=== PATIENT | female | born 1940 | race Caucasian/White ===

== ENCOUNTER → 2018-01-11 | Outpatient (CLI) | payer MEDICARE ==
[~2018-01-11] MED LIST: AMLODIPINE BESYL5 MG PO; BIOTIN PO; CALTRATE 600 W1 EACH PO; CETIRIZINE HCL5 MG PO; LOSARTAN POTAS100 MG PO; OMEPRAZOLE40 MG PO; STOOL SOFTENER PO; TOPROL XL50 MG PO
--- NOTE | 2018-01-11 09:54 | Diagnostic Imaging Report ---
PROCEDURE:HIP RIGHT 2-3 VW (+/- PELVIS) COMPARISON:None. INDICATIONS:PAIN IN LOWER BACK AND RIGHT HIP FINDINGS: Normal mineralization. No acute fracture or dislocation. Joint spaces are within normal limits. Soft tissues are unremarkable. CONCLUSION: No acute radiographic abnormality. Dictated by: Devon Sanchez M.D. on 01/11/2018 at 9:54 Electronically approved by: Devon Sanchez M.D. on 01/11/2018 at 9:54
--- NOTE | 2018-01-11 09:59 | Diagnostic Imaging Report ---
PROCEDURE:L-SPINE COMPLETE COMPARISON:None. INDICATIONS:PAIN IN LOWER BACK AND RIGHT HIP FINDINGS: There are 5 lumbar-type vertebral bodies. The vertebral bodies are well-aligned without evidence of spondylolisthesis. There are no fractures, lytic or blastic lesions. The disc-space heights are well-maintained. Degenerative changes evidenced by anterior osteophytosis at multiple levels and bilateral facet hypertrophy at L4/L5 and L5/S1. The sacroiliac joints are unremarkable. CONCLUSION: No acute radiographic abnormality. Dictated by: Devon Sanchez M.D. on 01/11/2018 at 9:59 Electronically approved by: Devon Sanchez M.D. on 01/11/2018 at 9:59
== END ==
LOC: RAD 08:59
DX: M25.551 Pain in right hip (principal); M54.5 Low back pain
CPT/HCPCS: 72110

== ENCOUNTER → 2018-04-16 | Outpatient (CLI) | payer MEDICARE ==
--- NOTE | 2018-04-16 20:52 | Diagnostic Imaging Report ---
PROCEDURE: CT CHEST WITHOUT CONTRAST CT scan of the chest WITHOUT intravenous contrast, using low dose, nodule protocol. TECHNIQUE: The chest was scanned utilizing a multidetector helical scanner from the apex to the level of the adrenal glands. No IV contrast was administered per protocol. Coronal and sagittal multiplanar reformations were obtained. COMPARISON: Patients [facility], CT, CT CHEST WO, 09/12/2016, 11:55. INDICATIONS: Pulmonary nodules FINDINGS: Lines/tubes: None. Lungs and Airways: Stable pulmonary nodules as follows: * 0.4-0.5 cm subpleural nodule in the right middle lobe (series 3, image 70). * 0.4 cm nodule in the superior segment of the left lower lobe (series 3, image 19, and sagittal image 85). No new pulmonary nodules. No masses or consolidation. Stable linear scarring in the lower lobes bilaterally (for example series 3, image 86), and lingula (series 3, image 79). Stable confluent pleuroparenchymal scarring with punctate calcification in the right apex (series 3, image 14). Airways are clear, without endobronchial lesions. Pleura: No effusion, or pneumothorax. 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 Heart and mediastinum: Thyroid is unremarkable. Heart size is normal. No pericardial effusion. Aorta is non-aneurysmal. Main pulmonary artery is normal in caliber. Lymph nodes: No mediastinal, hilar, or axillary adenopathy. Abdomen: Limited views of the upper abdomen show no abnormality within the visualized liver, spleen, pancreas, or kidneys. The adrenal glands are unremarkable. Bones: No acute bony abnormalities or aggressive lytic lesions. Degenerative disc changes in the thoracic spine. Bilateral breast implants are again noted. IMPRESSION: 1. Stable pulmonary nodules since 2016, which are presumed benign. No further followup is indicated. 2. 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 Macho Quiles M.D. Dictated by: Macho Quiles M.D. on 04/16/2018 at 14:54 Electronically approved by: Macho Quiles M.D. on 04/16/2018 at 14:54
== END ==
LOC: CT 04-04 12:18
PROVIDERS: ATTEND Internal Medicine Pulmonary Disease
DX: R91.8 Other nonspecific abnormal finding of lung field (principal)
CPT/HCPCS: 71250

== ENCOUNTER 2019-02-03 11:57 | Emergency (ER) | payer MEDICARE, OTHER ==
[~2019-02-03] VITALS: Ht 172.7 cm; Wt 60.8 kg
--- OUTSIDE RECORDS SUMMARY | 2019-02-03 12:00 | XMS REPORT ---
Author Author [facility] Address Unknown Phone Unavailable Care Team Providers Care Maintenance Welder Name Role Phone ELLIE LESLIE Unavailable Unavailable CLAYDINA Unavailable Unavailable Problems This patient has no known problems. Allergies, Adverse Reactions, Alerts This patient has no known allergies or adverse reactions. Medications This patient has no known medications. Results Test Description Test Time Test Comments Text Results Atomic Results Result Comments CT CHEST WO 2018-04-16 14:54:00 [place] [address] Patient Name: ROMMEL RAE MR #: [id number] : 1940 Age/Sex: 77/F Req #: [id number] Adm Physician: Ordered by: ELLIE LESLIE MD Report #: [id number] Location: CT Room/Bed: Procedure: [id number] CT/CT CHEST WO Exam Date: 04/16/18 Exam Time: 1300 REPORT STATUS: Signed PROCEDURE: CT CHEST WITHOUT CONTRAST CT scan of the chest WITHOUT intravenous contrast, using low dose, nodule protocol. TECHNIQUE: The chest was scanned utilizing a multidetector helical scanner from the apex to the level of the adrenal glands. No IV contrast was administered per protocol. Coronal and sagittal multiplanar reformations were obtained. COMPARISON: [facility], CT, CT CHEST WO, 09/12/2016, 11:55. INDICATIONS: Pulmonary nodules FINDINGS: Lines/tubes: None. Lungs and Airways: Stable pulmonary nodules as follows: * 0.4-0.5 cm subpleural nodule in the right middle lobe (series 3, image 70). * 0.4 cm nodule in the superior segment of the left lower lobe (series 3, image 19, and sagittal image 85). No new pulmonary nodules. No masses or consolidation. Stable linear scarring in the lower lobes bilaterally (for example series 3, image 86), and lingula (series 3, image 79). Stable confluent pleuroparenchymal scarring with punctate calcification in the right apex (series 3, image 14). Airways are clear, without endobronchial lesions. Pleura: No effusion, or pneumothorax. 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 Heart and mediastinum: Thyroid is unremarkable. Heart size is normal. No pericardial effusion. Aorta is non-aneurysmal. Main pulmonary artery is normal in caliber. Lymph nodes: No mediastinal, hilar, or axillary adenopathy. Abdomen: Limited views of the upper abdomen show no abnormality within the visualized liver, spleen, pancreas, or kidneys. The adrenal glands are unremarkable. Bones: No acute bony abnormalities or aggressive lytic lesions. Degenerative disc changes in the thoracic spine. Bilateral breast implants are again noted. IMPRESSION: 1. Stable pulmonary nodules since 2016, which are presumed benign. No further followup is indicated. 2. 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 Shobha Quiles M.D. Dictated by: Shobha Quiles M.D. on 04/16/2018 at 14:54 Electronically appr nader by: Shobha Quiles M.D. on 04/16/2018 at 14:54 Dictated By: SHOBHA QUILES MD [id number] Transcribed By: SHERRI on 04/16/18 [id number] COPY TO: ELLIE LESLIE MD HIP RIGHT 2-3 VW (+/- PELVIS) [place] [address] Patient Name: ROMMEL RAE MR #: [id number] : 1940 Age/Sex: 77/F Req #: [id number] Adm Physician: Ordered by: DINA CLAY MD Report #: [id number] Location: RAD Room/Bed: Procedure: [id number] DX/HIP RIGHT 2-3 VW (+/- PELVIS) Exam Date: Exam Time: REPORT STATUS: Signed PROCEDURE: HIP RIGHT 2-3 VW (+/- PELVIS) COMPARISON: None. INDICATIONS: PAIN IN LOWER BACK AND RIGHT HIP FINDINGS: Normal mineralization. No acute fracture or dislocation. Joint spaces are within normal limits. Soft tissues are unremarkable. CONCLUSION: No acute radiographic abnormality. Dictated by: Christoph Keating M.D. on 01/11/2018 at 9:54 Electronically approved by: Christoph Keating M.D. on 01/11/2018 at 9:54 Dictated By: CHRISTOPH KEATING MD 3 Transcribed By: SHERRI on 01/11/18953 COPY TO: DINA CLAY MD SP LUMBAR, COMPLETE MIN 4VW [place] [address] Patient Name: ROMMEL RAE MR #: [id number] : 1940 Age/Sex: 77/F Req #: [id number] Adm Physician: Ordered by: DINA CLAY MD Report #: [id number] Location: RAD Room/Bed: Procedure: [id number] DX/SP LUMBAR, COMPLETE MIN 4VW Exam Date: 01/11/18 Exam Time: 30 REPORT STATUS: Signed PROCEDURE: L-SPINE COMPLETE COMPARISON: None. INDICATIONS: PAIN IN LOWER BACK AND RIGHT HIP FINDINGS: There are 5 lumbar-type vertebral bodies. The vertebral bodies are well-aligned without evidence of spondylolisthesis. There are no fractures, lytic or blastic lesions. The disc-space heights are well-maintained. Degenerative changes evidenced by anterior osteophytosis at multiple levels and bilateral facet hypertrophy at L4/L5 and L5/S1. The sacroiliac joints are unremarkable. CONCLUSION: No acute radiographic abnormality. Dictated by: Christoph Keating M.D. on 01/11/2018 at 9:59 Electronically approved by: Christoph Keating M.D. on 01/11/2018 at 9:59 Dictated By: CHRISTOPH KEATING MD 8 Transcribed By: SHERRI on 01/11/18958 COPY TO: DINA CLAY MD
--- NOTE | 2019-02-03 12:52 | Diagnostic Imaging Report ---
Exam: Pelvis single frontal view History: Fall one week ago Comparison: None. Findings: No acute, displaced fracture or dislocation. Femoral heads project appropriately over the acetabula. Hip joint spaces are notable for mild narrowing and marginal acetabular osteophytosis. Soft tissues unremarkable. Impression: No acute osseous abnormality. Signed by: Dr. Denny Sloan M.D. on 02/03/2019 12:49 PM
[2019-02-03] MEDS ORDERED: DEXAMETHASONE SOD PHOS 10 MG/1 ML VIAL IM ONE (13:00)
--- NOTE | 2019-02-03 13:04 | Diagnostic Imaging Report ---
Exam: Lumbar spine 3 views, sacrum/coccyx, 2 views History: Pain status post fall Comparison: CT abdomen and pelvis 01/10/2016 Findings: There are 5 nonrib-bearing lumbar-type vertebral bodies. Age-indeterminate mild anterior compression deformity of L1 which was not present on lumbar spine radiographs 01/11/2018. No fragment retropulsion. Vertebral body heights are otherwise well-maintained. Degenerative disc changes at L3-L4 with retrolisthesis of L3 over L4, unchanged. Remaining intervertebral disc spaces are comparatively well maintained. The sacral foramina are intact superiorly. Inferiorly, the sacral body and coccyx are obscured by rectal gas and stool. No sacrococcygeal step-off on the lateral radiograph. Sacroiliac joints are maintained. Impression: Age indeterminant mild anterior compression deformity of L1. Point tenderness over this region of the spine would suggest acuity. No additional acute osseous abnormality. Degenerative disc changes of the lumbar spine worst at L3-L4. Signed by: Dr. Denny Sloan M.D. on 02/03/2019 1:01 PM
[2019-02-03 13:21] VITALS: BP 147/88
== END 2019-02-03 13:25 | disposition home or self-care (01) ==
LOC: FSED 11:57
DX: M54.6 Pain in thoracic spine (principal); M54.5 Low back pain; S32.010A Wedge compression fracture of first lumbar vertebra, initial encounter for closed fracture; M25.552 Pain in left hip; M25.551 Pain in right hip; W18.30XA Fall on same level, unspecified, initial encounter; Y92.008 Other place in unspecified non-institutional (private) residence as the place of occurrence of the external cause; I10 Essential (primary) hypertension
CPT/HCPCS: 72100; 72170; 72220; 99283; J1100

== ENCOUNTER → 2019-02-11 | Outpatient (CLI) | payer MEDICARE ==
--- NOTE | 2019-02-11 13:44 | Diagnostic Imaging Report ---
MRI SPINE LUMBAR WO HISTORY: Mid to lower back pain COMPARISON: Lumbar spine radiographs 02/03/2019; lumbar spine MRI 06/01/2016 TECHNIQUE: Sagittal T1, sagittal T2, sagittal STIR, axial T2, coronal T2, and axial proton density weighted images of the lumbar spine were obtained without contrast. DISCUSSION: Number of non-rib bearing lumbar vertebral bodies: 5. Alignment: Normal lordosis. Mild thoracolumbar levoscoliosis is present. Vertebrae: Mild L1 vertebral compression deformity is associated with diffuse vertebral marrow STIR hyperintensity, which extends to the bilateral pedicles. There is no significant fracture retropulsion. Associated mild prevertebral and paravertebral soft tissue T2 hyperintensity is present. Subtle compression deformity of the left posterior L2 superior endplate is also associated with focal underlying marrow STIR hyperintensity. Mild inflammatory endplate changes at L2-L3 and L3-L4 are nonspecific. Focal marrow STIR hyperintensity in the left superior T11 vertebral body is partially visualized. Conus medullaris: Normal, ends at L1-L2. Cauda equina: No masses or arachnoiditis. Posterior paraspinal muscles: Well preserved. No signal abnormalities. Soft tissues: No signal abnormalities. Mild to moderate multilevel disc degeneration is most prominent at L3-L4 and L5-S1. T12-L1: Minimal disc bulge without significant canal or foraminal stenosis. L1-L2: Minimal disc bulge without significant canal or foraminal stenosis. L2-L3: Mild to moderate canal stenosis due to disc bulge and ligamentum flavum thickening. The right lateral recess is slightly effaced. Mild right foraminal stenosis due to disc bulge and facet arthrosis. No significant left foraminal stenosis. L3-L4: Apparent right laminectomy changes. Mild canal stenosis due to disc bulge and ligamentum flavum thickening (above the laminectomy level). Mild to moderate right and mild left foraminal stenoses due to disc bulge and facet arthrosis. L4-L5: Mild left foraminal stenosis due to disc bulge and facet arthrosis. No significant canal or right foraminal stenosis. L5-S1: Mild left foraminal stenosis due to disc bulge and facet arthrosis. No significant canal or right foraminal stenosis. IMPRESSION: 1. Mild L1 vertebral compression fracture may be acute or subacute. No significant fracture retropulsion. 2. Suspected, minimal acute or subacute compression fracture along the left posterior L2 superior endplate. No significant fracture retropulsion. 3. Underlying mild to moderate multilevel disc degeneration, most prominent at L3-L4 and L5-S1. Nonspecific mild inflammatory endplate changes at L2-L3 and L3-L4. Partially visualized marrow edema in the left T11 vertebral body. 4. Apparent right laminectomy changes at L3-L4. 5. Mild to moderate L2-L3 and mild L3-L4 degenerative canal stenoses. 6. Multilevel bilateral degenerative foraminal stenoses - mild to moderate on the right at L3-L4. Signed by: Dr. Wai Miranda M.D. on 02/11/2019 1:41 PM
== END ==
LOC: MRI 10:40
DX: M54.5 Low back pain (principal); S32.010A Wedge compression fracture of first lumbar vertebra, initial encounter for closed fracture; W18.30XA Fall on same level, unspecified, initial encounter
CPT/HCPCS: 72148

== ENCOUNTER → 2020-05-13 | Outpatient (CLI) | payer MEDICARE ==
--- NOTE | 2020-05-13 13:39 | Diagnostic Imaging Report ---
Exam: Bone mineral density study. History: Osteopenia. Comparison: 11/19/17 Discussion: Evaluation of the left hip and lumbar spine was performed utilizing DEXA Hologic bone densitometer. The study is technically adequate. Left hip total bone mineral density: 0.628gm/cm2, T-score is -2.6, Z-score is -0.3. Left hip femoral neck bone mineral density: 0.556gm/cm2, T-score is -2.6 Z-score is -0.3. Lumbar spine total bone mineral density:1.052gm/cm2, T-score is 0 Z-score is 2.8. Impression: 1. Osteoporosis of the left hip, fracture risk is high. 2. Normal bone mineral density of the lumbar spine, fracture risk is not increased. The BMD change versus baseline is -8.4% and the BMD change versus previous -8.4% Least significant change (LSC) for bone mineral density as provided by continuous improvement coordinator is 0.023 g/cm2 for lumbar spine and 0.027 g/cm2 for total hip. 10 -year fracture risk per WHO Fracture Risk Assessment Tool (FRAX) for: Not reported because some T scores at or below -2.5 The patient's fracture risk is compared to an age-matched control. Medical evaluation for secondary causes of low bone bone mineral density may be appropriate. Correlate clinically for the necessity and timing of the next bone mineral density study. Signed by: Dr. Shyam Sung M.D. on 05/13/2020 1:35 PM
== END ==
LOC: MAMMO 11:53
DX: Z12.31 Encounter for screening mammogram for malignant neoplasm of breast (principal); M85.80 Other specified disorders of bone density and structure, unspecified site
CPT/HCPCS: 77067; 77080

== ENCOUNTER → 2020-07-07 | Outpatient (CLI) | payer MEDICARE ==
[~2020-07-07] MED LIST changes: +IOPAMIDOL 370 MG/ML 200 ML INFUS..BTL INJ ONE; +SODIUM CHLORIDE 0.9% 500ML 500 ML ONE; +SODIUM CHLORIDE 0.9% 50ML 50 ML ONE
[2020-07-07 12:25] LABS: CREATININE, SERUM 1.19 mg/dL (0.57-1.11)
--- NOTE | 2020-07-07 13:33 | Diagnostic Imaging Report ---
EXAM: CT Chest WITH intravenous contrast 07/07/2020 1:07 PM INDICATION: Right lower chest pain COMPARISON: CT abdomen and pelvis of 10/17/2019, chest radiograph 10/17/2019 TECHNIQUE: Chest was scanned utilizing a multidetector helical scanner from the lung apex through the level of the adrenal glands after administration of IV contrast. Coronal and sagittal reformations were obtained. Routine protocol was performed. IV CONTRAST: 100mL Isovue 370 RADIATION DOSE: Total DLP: 561 mGy*cm. Dose modulation, iterative reconstruction, and/or weight based adjustment of the mA/kV was utilized to reduce the radiation dose to as low as reasonably achievable. COMPLICATIONS: None FINDINGS: LINES/ TUBES: Bilateral saline breast implants intact. LUNGS AND AIRWAYS / PLEURA: Biapical pleural parenchymal thickening/scarring. 2.5 cm posterior right apical pleural based nodule with underlying pleural calcifications. Similar but smaller subpleural nodules measure 1.7 cm at the posterior left lung apex and 2.0 cm at the posterior left lower lobe, also with underlying pleural calcifications. HEART AND MEDIASTINUM: The thyroid gland is normal. No mediastinal, hilar or axillary lymphadenopathy. The heart is normal in size.. There is no pericardial effusion. Mild scattered atherosclerotic aortic calcifications. No central pulmonary embolism. UPPER ABDOMEN: No acute findings in the upper abdomen. BONES: No acute osseous injury. Degenerative endplate depression at the superior end plate of L1. No suspicious lytic or blastic lesions. SOFT TISSUES: Unremarkable. IMPRESSION: No focal pneumonia or pulmonary edema. Multiple bilateral areas of subpleural thickening/nodules measure up to 2.5 cm on the right and 2.0 cm on the left with underlying pleural calcifications. This can be related to prior asbestos exposure. Recommend PET/CT or alternatively short interval follow-up with chest CT in 3-6 months. Intact bilateral saline breast implants without associated soft tissue mass or focal fluid collection. Signed by: Pepe Figueroa MD on 07/07/2020 1:30 PM
== END ==
LOC: CT 11:34
DX: N64.4 Mastodynia (principal); R07.1 Chest pain on breathing; R20.8 Other disturbances of skin sensation; Z98.82 Breast implant status
CPT/HCPCS: 36415; 71260; 82565; 84520; 96360; J7040; Q9967

== ENCOUNTER → 2021-09-27 | Outpatient (CLI) | payer MEDICARE ==
[~2021-09-27] MED LIST changes: -IOPAMIDOL 370 MG/ML 200 ML INFUS..BTL INJ ONE; -SODIUM CHLORIDE 0.9% 500ML 500 ML ONE; -SODIUM CHLORIDE 0.9% 50ML 50 ML ONE
== END ==
LOC: RAD 13:57
DX: M79.661 Pain in right lower leg (principal)
CPT/HCPCS: 93970

== ENCOUNTER → 2022-08-16 | Outpatient (CLI) | payer MEDICARE | LOC: RAD 11:34 | DX: M25.552 Pain in left hip (principal); M25.551 Pain in right hip | CPT/HCPCS: 73521 ==

== ENCOUNTER → 2023-02-14 | Day surgery (SDC) | payer MEDICARE ==
[2023-02-12 12:43] LABS: BASOPHILS % 0.7 % (0.0-1.0); EOSINOPHILS # (AUTO) 0.1 (0.0-0.4); EOSINOPHILS % 2.2 % (0.0-6.0); HEMATOCRIT 37.5 % (34.2-44.1); HEMOGLOBIN 12.6 g/dL (12.0-16.0); LYMPHOCYTES # (AUTO) 1.4 (1.0-3.2); LYMPHOCYTES % 30.7 % (18.0-39.1); MEAN CORPUSCULAR HEMOGLOBIN 32.1 pg (28-32); MEAN CORPUSCULAR HGB CONC 33.6 g/dL (31-35); MEAN CORPUSCULAR VOLUME 95.4 fL (81-99); MONOCYTES # (AUTO) 0.4 (0.2-0.8); MONOCYTES % 9.2 % (4.4-11.3); NEUTROPHILS # (AUTO) 2.6 (2.1-6.9); PLATELET COUNT 148 x10e3/uL (140-360); RED BLOOD COUNT 3.93 x10e6/uL (3.6-5.1); RED CELL DISTRIBUTION WIDTH 12.8 % (11.7-14.4)
[~2023-02-14] MED LIST changes: +FENTANYL CITRATE/PF 100MCG/2 ML INJ ONE; +LACTATED RINGER'S 1,000 ML ONE; +LIDOCAINE HCL 2% LOCAL INJ 5 ML SDV VIAL INJ ONE; +METOCLOPRAMIDE HCL 10 MG/2ML VIAL ONE; +ONDANSETRON HCL INJ 2MG/ML 2ML 2 MG/ML VIAL ONE; +POVIDONE IODINE 0.05% 0.05 % ML PO ONE; +PROPOFOL IV EMULSION 10 MG/ML 20 ML VIAL ONE; +ZOLOFT50 MG PO; +ZOLPIDEM TARTRAT5 MG PO
[2023-02-14 15:46] VITALS: BP 137/76
== END | disposition home or self-care (01) ==
LOC: OR 11:52
PROVIDERS: ATTEND Internal Medicine Gastroenterology
DX: K21.9 Gastro-esophageal reflux disease without esophagitis (principal); K31.7 Polyp of stomach and duodenum; K29.70 Gastritis, unspecified, without bleeding; K44.9 Diaphragmatic hernia without obstruction or gangrene; I10 Essential (primary) hypertension; E78.00 Pure hypercholesterolemia, unspecified; M80.00XA Age-related osteoporosis with current pathological fracture, unspecified site, initial encounter for fracture; Z88.1 Allergy status to other antibiotic agents; Z01.810 Encounter for preprocedural cardiovascular examination; Z01.812 Encounter for preprocedural laboratory examination; Z79.899 Other long term (current) drug therapy; Z79.82 Long term (current) use of aspirin
CPT/HCPCS: 36415; 43239; 85025; 93005; C9113; J2001; J2405; J2704; J2765; J3010; J7121

== ENCOUNTER 2025-06-19 16:10 | Inpatient (IN) | payer MEDICARE ==
[~2025-06-19] VITALS: Ht 172.7 cm; Wt 59.4 kg
[~2025-06-19 16:10] MED LIST changes: -FENTANYL CITRATE/PF 100MCG/2 ML INJ ONE; -LACTATED RINGER'S 1,000 ML ONE; -LIDOCAINE HCL 2% LOCAL INJ 5 ML SDV VIAL INJ ONE; -METOCLOPRAMIDE HCL 10 MG/2ML VIAL ONE; -ONDANSETRON HCL INJ 2MG/ML 2ML 2 MG/ML VIAL ONE; -POVIDONE IODINE 0.05% 0.05 % ML PO ONE; -PROPOFOL IV EMULSION 10 MG/ML 20 ML VIAL ONE
[2025-06-19 16:15] VITALS: PULSE 67; RESP 16; TEMP 98.6
[2025-06-19] MEDS ORDERED: SEVOFLURANE INHAL SOLN 250 ML PEN BTL ONE (17:39)
[2025-06-19] MEDS ORDERED: GABAPENTIN300 MG PO (17:39)
[2025-06-19] MEDS ORDERED: TYLENOL325 MG PO (17:39)
[2025-06-19] MEDS ORDERED: DIPHENHYDRAMINE HCL INJ 50 MG/ML VIAL IV PRN (18:30)
[2025-06-19] MEDS ORDERED: Clindamycin INJ 150 MG/ML 600 MG Vial ONE (18:31)
[2025-06-19] MEDS: CLINDAMYCIN PHOS 900MG/ 50ML 50 ML IV ONE (18:39)
[2025-06-19] MEDS: KETOROLAC TROMETHAMINE 30 MG/ML VIAL IV ONE (18:39)
[2025-06-19] MEDS: SODIUM CHLORIDE 0.9% 500ML 500 ML IV STA (18:39)
[2025-06-19 21:23] VITALS: BP 136/68; PULSE 62; RESP 20; TEMP 98.8; O2SAT 99
[2025-06-19] MEDS: LACTATED RINGER'S 1,000 ML IV SCH (22:55)
[2025-06-19] MEDS: Morphine 2mg Syringe 2 MG/ML SYR IV PRN (23:47)
[2025-06-19] MEDS: ONDANSETRON HCL INJ 2MG/ML 2ML 2 MG/ML VIAL IV PRN (23:48)
[2025-06-20] VITALS (9 sets, daily range): BP systolic 114–130; BP diastolic 52–79; PULSE 62–110; RESP 18–20; TEMP 97.4–98.6; O2SAT 96–99
[2025-06-20 06:51] LABS: BASOPHILS % 0.9 % (0.0-1.0); EOSINOPHILS % 4.1 % (0.0-6.0); LYMPHOCYTES % 44.5 % (18.0-39.1); MONOCYTES % 8.7 % (4.4-11.3); NEUTROPHILS % 41.5 % (38.7-80.0); RED CELL DISTRIBUTION WIDTH 13.2 % (11.7-14.4)
[2025-06-20] MEDS ORDERED: ROSUVASTATIN CAL5 MG PO (06:58)
[2025-06-20] MEDS ORDERED: ASPIRIN CHEW81 MG PO (06:58)
[2025-06-20 07:11] LABS: EST GLOMERULAR FILTRATION RATE 49.0 ML/MIN (>=60)
[2025-06-20] MEDS ORDERED: SUCCINYLCHOLINE CHLORIDE 20 MG/ML 10ML VIAL ONE (07:21)
[2025-06-20] MEDS ORDERED: ROCURONIUM BROMIDE 1 ML IV ONE (07:21)
[2025-06-20] MEDS ORDERED: LIDOCAINE HCL 2% LOCAL INJ 5 ML SDV VIAL INJ ONE (07:21)
[2025-06-20] MEDS ORDERED: FENTANYL CITRATE/PF 100MCG/2 ML INJ ONE (07:21)
[2025-06-20] MEDS ORDERED: PROPOFOL IV EMULSION 10 MG/ML 20 ML VIAL ONE (07:23)
[2025-06-20] MEDS ORDERED: PROTONIX20 MG PO (07:27)
[2025-06-20] MEDS: FAMOTIDINE 20 MG/2 ML VIAL IV SCH (08:19)
[2025-06-20] MEDS ORDERED: KETOROLAC TROMETHAMINE 30 MG/ML VIAL ONE (09:34)
[2025-06-20] MEDS ORDERED: ONDANSETRON HCL INJ 2MG/ML 2ML 2 MG/ML VIAL ONE (09:34)
[2025-06-20] MEDS ORDERED: METOCLOPRAMIDE HCL 10 MG/2ML VIAL ONE (09:34)
[2025-06-20] MEDS ORDERED: DEXAMETHASONE SOD PHOS INJ 4 MG/ML SDV ONE (09:34)
[2025-06-20] MEDS ORDERED: SUGAMMADEX SODIUM 200 MG/2 ML VIAL IV ONE (09:37)
[2025-06-20] MEDS ORDERED: ONDANSETRON HCL INJ 2MG/ML 2ML 2 MG/ML VIAL IV PRN (10:15)
[2025-06-20] MEDS ORDERED: HYDROCODONE/APAP 5MG-325MG TAB PO PRN (10:15)
[2025-06-20] MEDS: ONDANSETRON HCL INJ 2MG/ML 2ML 2 MG/ML VIAL ONE (10:37)
[2025-06-20] MEDS: LEVOFLOXACIN 500MG/D5W 100ML 100 ML IV SCH (12:21)
[2025-06-20] MEDS: METRONIDAZOLE 500MG/NS 100ML 100 ML IV SCH (13:43)
[2025-06-21] VITALS: BP 128/62; PULSE 72; RESP 20; TEMP 98.6; O2SAT 96
[2025-06-21] MEDS: ACETAMINOPHEN 325 MG TAB PO PRN (00:30)
[2025-06-21 04:00] VITALS: BP 128/67; PULSE 87; RESP 20; TEMP 98.7; O2SAT 95
[2025-06-21 07:28] LABS: BASOPHILS % 0.3 % (0.0-1.0); EOSINOPHILS % 0.0 % (0.0-6.0); LYMPHOCYTES % 11.9 % (18.0-39.1); MONOCYTES % 6.6 % (4.4-11.3); NEUTROPHILS % 80.9 % (38.7-80.0); RED CELL DISTRIBUTION WIDTH 12.9 % (11.7-14.4)
[2025-06-21 08:01] LABS: EST GLOMERULAR FILTRATION RATE 51.0 ML/MIN (>=60)
[2025-06-21 08:22] VITALS: BP 128/67; PULSE 87; RESP 20; TEMP 98.7; O2SAT 95
[2025-06-21 08:32] VITALS: BP 140/57; PULSE 73; RESP 18; TEMP 98.4; O2SAT 100
[2025-06-21] MEDS ORDERED: LEVOFLOXACIN500 MG PO (12:47)
[2025-06-21] MEDS ORDERED: ONDANSETRON ODT4 MG PO (12:47)
[2025-06-21 12:59] VITALS: BP 138/70; PULSE 73; RESP 18; TEMP 97.3; O2SAT 100
== END 2025-06-21 13:37 | disposition home or self-care (01) | DRG 399 ==
LOC: FSED 16:15 → ERHOLD 18:20 → MED/SURG2 21:23
PROVIDERS: ADMIT Internal Medicine; ATTEND Internal Medicine
PROC: 0DTJ4ZZ Resection of Appendix, Percutaneous Endoscopic Approach (ICD-10-PCS; principal; 2025-06-20 09:22)
DX: K35.80 Unspecified acute appendicitis (principal); E78.00 Pure hypercholesterolemia, unspecified; K21.9 Gastro-esophageal reflux disease without esophagitis; F41.9 Anxiety disorder, unspecified; F32.A Depression, unspecified; N18.32 Chronic kidney disease, stage 3b; I12.9 Hypertensive chronic kidney disease with stage 1 through stage 4 chronic kidney disease, or unspecified chronic kidney disease; M81.0 Age-related osteoporosis without current pathological fracture; M54.9 Dorsalgia, unspecified; G47.00 Insomnia, unspecified; Z79.82 Long term (current) use of aspirin; Z88.1 Allergy status to other antibiotic agents; Z87.891 Personal history of nicotine dependence
CPT/HCPCS: 36415; 74176; 80048; 80053; 81003; 83735; 85025; 88304; 88313; 88342; 99283; J0330; J1100; J1308; J1885; J1956; J2003; J2270; J2405; J2765; J7040

== ENCOUNTER 2025-07-09 07:29 | Inpatient (IN) | payer MEDICARE ==
[2025-07-03 12:25] LABS: BASOPHILS % 0.6 % (0.0-1.0); EOSINOPHILS % 2.2 % (0.0-6.0); LYMPHOCYTES % 31.5 % (18.0-39.1); MONOCYTES % 7.6 % (4.4-11.3); NEUTROPHILS % 58.1 % (38.7-80.0); RED CELL DISTRIBUTION WIDTH 13.0 % (11.7-14.4)
[2025-07-03 12:52] LABS: EST GLOMERULAR FILTRATION RATE 45.0 ML/MIN (>=60)
[~2025-07-09] VITALS: Ht 172.7 cm; Wt 59.9 kg
[~2025-07-09 07:29] MED LIST changes: +ASPIRIN CHEW81 MG PO; +EVISTA60 MG PO; +GABAPENTIN300 MG PO; +LEVOFLOXACIN500 MG PO; +MAGNESIUM OXID400 MG PO; +ONDANSETRON ODT4 MG PO; +PROTONIX20 MG PO; +ROSUVASTATIN CAL5 MG PO; +TYLENOL325 MG PO; +VOQUEZNA10 MG PO
[2025-07-09] MEDS ORDERED: LIDOCAINE HCL 2% LOCAL INJ 5 ML SDV VIAL INJ ONE (08:20)
[2025-07-09] MEDS ORDERED: ROCURONIUM BROMIDE 1 ML IV ONE (08:20)
[2025-07-09] MEDS ORDERED: PROPOFOL IV EMULSION 10 MG/ML 20 ML VIAL ONE (08:20)
[2025-07-09] MEDS ORDERED: FENTANYL CITRATE/PF 100MCG/2 ML INJ ONE ×2 (08:24→08:25)
[2025-07-09] MEDS ORDERED: BUPIVACAINE 0.25% 30ML SDV ONE (08:31)
[2025-07-09] MEDS ORDERED: EPINEPHRINE HCL 1:1000 1ML 1 MG/ML AMP ONE (08:31)
[2025-07-09] MEDS ORDERED: BUPIVACAINE LIPOSOME/PF 266 MG/20 ML IJ ONE (09:30)
[2025-07-09] MEDS: LACTATED RINGER'S 1,000 ML ONE (09:38)
[2025-07-09] MEDS ORDERED: DEXAMETHASONE SOD PHOS INJ 4 MG/ML SDV ONE (10:00)
[2025-07-09] MEDS ORDERED: ONDANSETRON HCL INJ 2MG/ML 2ML 2 MG/ML VIAL ONE (10:00)
[2025-07-09] MEDS ORDERED: SUGAMMADEX SODIUM 200 MG/2 ML VIAL IV ONE (10:07)
[2025-07-09] MEDS ORDERED: SEVOFLURANE INHAL SOLN 250 ML PEN BTL ONE (10:27)
[2025-07-09] MEDS ORDERED: ACETAMINOPHEN 1000 MG/100 ML 100 ML IV ONE (10:50)
[2025-07-09] MEDS ORDERED: ONDANSETRON HCL INJ 2MG/ML 2ML 2 MG/ML VIAL IV PRN (11:00)
[2025-07-09] MEDS ORDERED: Morphine 4mg INJECTION 4 MG/ML INJ IV PRN (11:00)
[2025-07-09] MEDS ORDERED: HYDROCODONE/APAP 5MG-325MG TAB PO PRN (11:00)
[2025-07-09] MEDS: FENTANYL CITRATE/PF 100MCG/2 ML INJ ONE (11:24)
[2025-07-09] MEDS ORDERED: ACETAMINOPHEN 1000 MG/100 ML IV SCH (12:00)
[2025-07-09 13:00] VITALS: BP 119/64; PULSE 79; RESP 20; TEMP 98.1; O2SAT 97
[2025-07-09 13:56] VITALS: BP 119/64; PULSE 79; RESP 20; TEMP 98.1; O2SAT 97
[2025-07-09 14:00] VITALS: BP 119/64; PULSE 79; RESP 20; TEMP 98.1; O2SAT 97
[2025-07-09] MEDS: SODIUM CHLORIDE 0.9% 1000ML 1,000 ML IV SCH (14:30)
[2025-07-09] MEDS: KETOROLAC TROMETHAMINE 30 MG/ML VIAL IV SCH (14:30)
[2025-07-09 15:53] VITALS: PULSE 74; RESP 20; O2SAT 96
[2025-07-09] MEDS: ACETAMINOPHEN 1000 MG/100 ML IV SCH (17:39)
[2025-07-09 20:00] VITALS: BP 113/54; PULSE 79; RESP 16; TEMP 98.4; O2SAT 96
[2025-07-09 20:38] VITALS: PULSE 75; RESP 20; O2SAT 96
[2025-07-09] MEDS: AMLODIPINE BESYLATE 5 MG TAB PO SCH (21:14)
[2025-07-10] VITALS (11 sets, daily range): BP systolic 126–152; BP diastolic 61–78; PULSE 66–78; RESP 16–20; TEMP 97.5–98.9; O2SAT 94–100
[2025-07-10 05:18] LABS: BASOPHILS % 0.1 % (0.0-1.0); EOSINOPHILS % 0.0 % (0.0-6.0); LYMPHOCYTES % 8.0 % (18.0-39.1); MONOCYTES % 4.9 % (4.4-11.3); NEUTROPHILS % 86.7 % (38.7-80.0); RED CELL DISTRIBUTION WIDTH 13.2 % (11.7-14.4)
[2025-07-10 05:38] LABS: EST GLOMERULAR FILTRATION RATE 61.0 ML/MIN (>=60)
[2025-07-10] MEDS: LOSARTAN POTASSIUM 100 MG TAB PO SCH (08:06)
[2025-07-10] MEDS: METOPROLOL SUCCINATE 50 MG TAB XL PO SCH (08:06)
[2025-07-10] MEDS: RALOXIFENE HCL 60 MG TAB PO SCH (08:06)
[2025-07-10] MEDS: LORATADINE 10 MG TAB PO SCH (08:07)
[2025-07-10] MEDS: ATORVASTATIN 10 MG TAB PO SCH (08:07)
[2025-07-10] MEDS: SERTRALINE HCL 50 MG TAB PO SCH (08:07)
[2025-07-10] MEDS: ASPIRIN 81 MG CHEW TAB PO SCH (08:08)
[2025-07-10] MEDS: MAGNESIUM OXIDE 400 MG TAB PO SCH (08:08)
[2025-07-10] MEDS ORDERED: [UNRECOGNIZED DRUG - OTHER] PO SCH (09:00)
[2025-07-10] MEDS ORDERED: MAGNESIUM OXIDE 400 MG TAB PO SCH (09:00)
[2025-07-11] VITALS (7 sets, daily range): BP systolic 122–156; BP diastolic 60–78; PULSE 66–74; RESP 18–19; TEMP 97.7–99; O2SAT 94–95
[2025-07-11 05:51] LABS: BASOPHILS % 0.3 % (0.0-1.0); EOSINOPHILS % 1.5 % (0.0-6.0); LYMPHOCYTES % 17.5 % (18.0-39.1); MONOCYTES % 6.7 % (4.4-11.3); NEUTROPHILS % 73.7 % (38.7-80.0); RED CELL DISTRIBUTION WIDTH 13.6 % (11.7-14.4)
[2025-07-11 06:14] LABS: EST GLOMERULAR FILTRATION RATE 70.0 ML/MIN (>=60)
[2025-07-11] MEDS: MAGNESIUM OXIDE 400 MG TAB PO ONE (10:41)
[2025-07-11] MEDS: POTASSIUM CHLORIDE 10MEQ EA PO ONE (10:41)
[2025-07-12 03:00] VITALS: BP 136/68; PULSE 71; RESP 16; TEMP 98.5; O2SAT 95
[2025-07-12 05:24] LABS: BASOPHILS % 0.1 % (0.0-1.0); EOSINOPHILS % 2.2 % (0.0-6.0); LYMPHOCYTES % 12.7 % (18.0-39.1); MONOCYTES % 6.0 % (4.4-11.3); NEUTROPHILS % 78.9 % (38.7-80.0); RED CELL DISTRIBUTION WIDTH 13.3 % (11.7-14.4)
[2025-07-12 05:48] LABS: EST GLOMERULAR FILTRATION RATE 84.0 ML/MIN (>=60)
[2025-07-12 06:02] LABS: % IRON SATURATION 18.0 % (15-50)
[2025-07-12 08:04] VITALS: PULSE 74; RESP 18; O2SAT 96
[2025-07-12 08:16] VITALS: BP 142/71; PULSE 74; RESP 18; TEMP 99; O2SAT 96
[2025-07-12 08:22] VITALS: BP 142/71; PULSE 74; RESP 18; TEMP 99; O2SAT 96
[2025-07-12 11:47] VITALS: BP 143/73; PULSE 73; RESP 19; TEMP 99; O2SAT 96
[2025-07-12 13:05] VITALS: PULSE 71; RESP 18; O2SAT 97
[2025-07-12] MEDS: POTASSIUM CHLORIDE 10MEQ EA PO ONE (13:23)
== END 2025-07-12 13:38 | disposition home or self-care (01) | DRG 330 ==
LOC: OR 07:29 → PACU V 10:59 → MED/SURG 12:25
PROVIDERS: ADMIT Surgery; ATTEND Surgery
PROC: 07BB0ZZ Excision of Mesenteric Lymphatic, Open Approach (ICD-10-PCS; 2025-07-09)
PROC: 0DBF0ZZ Excision of Right Large Intestine, Open Approach (ICD-10-PCS; principal; 2025-07-09 09:46)
DX: C18.1 Malignant neoplasm of appendix (principal); N17.9 Acute kidney failure, unspecified; J61 Pneumoconiosis due to asbestos and other mineral fibers; F41.8 Other specified anxiety disorders; I10 Essential (primary) hypertension; G47.00 Insomnia, unspecified; M81.0 Age-related osteoporosis without current pathological fracture; M54.50 Low back pain, unspecified; G89.29 Other chronic pain; R59.9 Enlarged lymph nodes, unspecified; D69.6 Thrombocytopenia, unspecified; D64.9 Anemia, unspecified; Z90.49 Acquired absence of other specified parts of digestive tract; Z88.1 Allergy status to other antibiotic agents; Z79.82 Long term (current) use of aspirin
CPT/HCPCS: 36415; 71046; 80048; 80053; 82378; 82728; 83540; 83735; 84466; 85025; 88305; 88309; 93005; 94799; 99252; J0169; J0666; J0694; J1100; J1885; J2003; J2405; J7030